=== PATIENT | male | born 1945 | race Caucasian/White ===

== ENCOUNTER → 2016-06-14 | Outpatient (CLI) | payer OTHER, MEDICARE | LOC: FCPNEURO 23:05 | PROVIDERS: ATTEND Psychiatry & Neurology Sleep Medicine | DX: G47.33 Obstructive sleep apnea (adult) (pediatric) (principal); G47.52 REM sleep behavior disorder ==

== ENCOUNTER 2016-06-30 09:57 | Day surgery (SDC) | payer OTHER, MEDICARE ==
[2016-06-30] MEDS ORDERED: LIDOCAINE 1% 30 ML SDV SC ONE (11:00)
--- NOTE | 2016-06-30 12:52 | CPIP ---
INDICATIONS: The patient is 71 years old. He has a LINQ in place given his history of arrhythmia. He was ultimately diagnosed with atrial fibrillation. At this point, he is here to remove his LINQ . PROCEDURE: Removal of [employer] LINQ. TECHNIQUE: Following informed consent in a fasting state, the patient was in the CVC. His left minoo st was prepped and draped in the usual sterile fashion. The LINQ was identified by palpation, as we ll as the presence of an overlying scar. A 1 cm incision was made. Using blunt dissection the LINQ was identified and explanted. A single running layer of deep 2-0 Vicryl sutures was then placed to close the wound. Jasmyne were applied to close the skin. Manual pressure was held. DISPOSITION: He will be recovered in the CVC and discharged home later today. COMPLICATIONS: None. /[id number]/MODL
== END 2016-06-30 11:43 | disposition home or self-care (01) ==
LOC: FCATH 09:57
PROVIDERS: ATTEND Internal Medicine Cardiovascular Disease
PROC: 0JPT02Z Removal of Monitoring Device from Trunk Subcutaneous Tissue and Fascia, Open Approach (ICD-10-PCS; principal; 2016-06-30)
DX: I48.0 Paroxysmal atrial fibrillation (principal); I10 Essential (primary) hypertension; E78.5 Hyperlipidemia, unspecified; Z86.73 Personal history of transient ischemic attack (TIA), and cerebral infarction without residual deficits